=== PATIENT | female | born 1990 | race Caucasian/White ===

== ENCOUNTER 2017-09-12 17:52 | Inpatient (IN) | payer BC ==
[2017-09-12] MEDS ORDERED: Oxytocin in LR* 20 UNITS/1,000 ML BAG IVPB SCH (21:00)
--- NOTE | 2017-09-12 21:03 | HP ---
General Information - General Information Maternal Age: 27 Grav: 2 Para: 1 SAB: 0 IEA: 0 Estimated Due Date: 09/13/17 Determined By: LMP Gestational Age in Weeks and Days: 39 Weeks and 6 Days Maternal Blood Type and Rh: AB Positive - Results this Serology/RPR Result: Non-Reactive Rubella Result: Immune HBsAg Result: Negative HIV Result: Negative GBS Culture Result: Negative Past Medical History Delivery History: Hx Uncomplicated Vaginal Delivery Pertinent Past Medical History: See Records Pertinent Past Surgical History: None Pertinent Family History: See Records Family History Comment: DM, Br. [place]. thyroid disease - Antepartal Records Antepartal Records: Reviewed, Complicated by: - unstable lie Review of Systems Constitutional: Comfortable CV Complaint: No Respiratory: Shortness of Breath: No Gastrointestinal: No Nausea/Vomiting Genitourinary: Leaking Fluid Musculoskeletal: Contractions Neurological: No Headache Movement: Normal Exam Allergies/Adverse Reactions: Allergies No Known Allergies Allergy (Verified 09/12/17 18:14) T: 97.5, P:103, R:18, BP: 129/86, O2 stats: 100 - Measurements Height: 6 ft Weight: 204 lb Weight in lbs: 204 Body Mass Index (BMI): 27.6 Pre- Weight: 155 lb Weight Gained This : 49 lbs and 0 ozs - Cervical Exam in office - Abdominal Exam Abdomen Exam: Non-Tender - Membranes Membrane Status: SROM - Ultrasound/Biophysical Profile Ultrasound Status: Bedside Exam Ultrasound Findings: vertex EFM Findings - External Monitor Findings Baseline Heart Rate: 150 External Monitor Findings: Accelerations Present, No Pattern of Variable or Late Decelerations, Variability Moderate, Baseline Stable Contractions: Irregular, Moderate, 45-90 Seconds Assessment/Plan - Reason for Visit Reason for Visit: SROM - Obstetrical Risk Factors Risk Factors Comment: unstable lie, vertex confirmed by bedside sono - Plan Plan: Early Labor Plan Comment: plan augmentation with pitocin. Pt counseled on risks versus benefits and desires to continue with pitocin augmentation - Date/Time of Admission Date of Admission: 09/12/17 Time of Admission: 21:00
[2017-09-12 21:15] LABS: ABS Basophils 0.2 10^3/ul (0-0.2); ABS Eosinophils 0 10^3/ul (0-0.6); ABS Monocytes 0.8 10^3/ul (0-0.8); ABS Neutrophils 7.6 10^3/ul (1.5-7.7); ABS Nucleated RBC 0 10^3/ul; Eosinophil % 0.4 % (0-6); Hematocrit 34 % (35-47); Hemoglobin 11.8 g/dl (12.0-16.0); Lymphocyte % 18.9 % (25-47); Mean Corpuscular HGB Conc 35 g/dl (31-36); Mean Corpuscular Hemoglobin 33 pg (27-31); Mean Corpuscular Volume 95 fL (80-97); Mean Platelet Volume 10.3 um3 (7.4-10.4); Nucleated Red Blood Cells % 0; Platelet Count 178 10^3/ul (150-450); Red Blood Count 3.59 10^6/ul (4.0-5.4); Red Cell Distribution Width 13 % (10.5-15); White Blood Count 10.5 10^3/ul (3.5-10.8)
[2017-09-13] MEDS ORDERED: Promethazine INJ(RESTRICTED)* 25 MG/ML 1 ML VIAL IV ONE (00:37)
[2017-09-13] MEDS ORDERED: Nalbuphine* 20 MG/ML 1 ML VIAL IV ONE (00:37)
[2017-09-13] MEDS ORDERED: Promethazine INJ(RESTRICTED)* 25 MG/ML 1 ML VIAL ONE (00:42)
[2017-09-13] MEDS ORDERED: Nalbuphine* 20 MG/ML 1 ML VIAL ONE (00:42)
[2017-09-13] MEDS ORDERED: OBEPIDURAL* 250 ML EPIDURAL ONE (03:18)
[2017-09-13] MEDS ORDERED: Sodium Citrate/Citric Acid* 15 ML UDC PO PRN (03:54)
[2017-09-13] MEDS ORDERED: Phenylephrine IV* 40 MCG/ML 10 ML SYRINGE IV PUSH PRN ×2 (03:54)
[2017-09-13] MEDS ORDERED: Famotidine TAB* 20 MG PO PRN (03:54)
[2017-09-13] MEDS ORDERED: EPHEDrine (Pressors)* 50 MG/ML VIAL IV PUSH PRN ×2 (03:54)
[2017-09-13] MEDS ORDERED: OBEPIDURAL* 250 ML EPIDURAL SCH (04:00)
[2017-09-13] MEDS ORDERED: Acetaminophen TAB* 325 MG PO PRN (07:20)
[2017-09-13] MEDS ORDERED: Witch Hazel PAD* JAR TOPICAL PRN (07:20)
[2017-09-13] MEDS ORDERED: Dibucaine 1% 28.35 GM TUBE PR PRN (07:20)
[2017-09-13] MEDS ORDERED: Ibuprofen TAB* 600 MG PO PRN (07:20)
[2017-09-13] MEDS ORDERED: Glycerin ADULT SUPP PR PRN (07:20)
[2017-09-13] MEDS ORDERED: Simethicone TAB* 80 MG TAB.CHEW PO SCH (08:30)
[2017-09-13] MEDS: Docusate CAP* 100 MG PO SCH ×2 (20:40→23:13)
[2017-09-14 06:28] LABS: ABS Basophils 0.1 10^3/ul (0-0.2); ABS Eosinophils 0.1 10^3/ul (0-0.6); ABS Lymphocytes 2.1 10^3/ul (1.0-4.8); ABS Monocytes 0.6 10^3/ul (0-0.8); ABS Nucleated RBC 0 10^3/ul; Eosinophil % 0.5 % (0-6); Hematocrit 32 % (35-47); Lymphocyte % 19.2 % (25-47); Mean Corpuscular HGB Conc 34 g/dl (31-36); Mean Corpuscular Hemoglobin 33 pg (27-31); Mean Corpuscular Volume 96 fL (80-97); Mean Platelet Volume 9.7 um3 (7.4-10.4); Nucleated Red Blood Cells % 0.1; Platelet Count 167 10^3/ul (150-450); Red Blood Count 3.35 10^6/ul (4.0-5.4); Red Cell Distribution Width 13 % (10.5-15); White Blood Count 10.8 10^3/ul (3.5-10.8)
[2017-09-14 08:22] VITALS: BP 123/79
[2017-09-14] MEDS ORDERED: Ferrous Gluconate TAB* 324 MG TAB PO SCH (09:00)
[2017-09-14] MEDS: Docusate CAP* 100 MG PO SCH (09:41)
== END 2017-09-14 17:09 | disposition home or self-care (01) | DRG 560 ==
LOC: MCHOBOUT 17:52 → MCHOB 21:22
PROVIDERS: ADMIT Midwife; ATTEND Midwife
PROC: 10E0XZZ Delivery of Products of Conception, External Approach (ICD-10-PCS; principal; 2017-09-12)
PROC: 4A1HX4Z Monitoring of Products of Conception, Cardiac Electrical Activity, External Approach (ICD-10-PCS; 2017-09-12)
DX: O76 Abnormality in fetal heart rate and rhythm complicating labor and delivery (principal); Z3A.40 40 weeks gestation of pregnancy; Z37.0 Single live birth
CPT/HCPCS: 36415; 85025; 86850; 86900; 86901; A9270-GY; J2300; J2550